=== PATIENT | male | born 1960 | race Caucasian/White ===

== ENCOUNTER 2018-09-05 10:26 | Emergency (ER) | payer OTHER ==
[~2018-09-05] VITALS: Ht 167.6 cm; Wt 90.7 kg
[~2018-09-05 10:26] MED LIST: PERCOCET 10-3251 TAB; PROTONIX20 MG; TRELSTAR
[2018-09-05] MEDS ORDERED: KETO10TA2 PO (14:36)
[2018-09-05] MEDS ORDERED: PYRIDIUM200 MG PO (14:36)
[2018-09-05] MEDS ORDERED: LEVAQUIN500 MG PO (14:36)
== END 2018-09-05 15:38 | disposition home or self-care (01) ==
LOC: ER 10:26
DX: N39.0 Urinary tract infection, site not specified (principal)

== ENCOUNTER 2018-10-02 20:37 | Emergency (ER) | payer OTHER ==
[~2018-10-02] VITALS: Ht 167.6 cm; Wt 79.8 kg
[~2018-10-02 20:37] MED LIST changes: +KETO10TA2 PO; +LEVAQUIN500 MG PO; +PYRIDIUM200 MG PO
[2018-10-03] MEDS ORDERED: ZOFRAN ODT4 MG PO (01:33)
[2018-10-03] MEDS ORDERED: LEVAQUIN750 MG PO (01:33)
[2018-10-03] MEDS ORDERED: PEPCID40 MG PO (01:33)
[2018-10-03] MEDS ORDERED: KETO10TA2 PO (01:50)
== END 2018-10-03 01:23 | disposition home or self-care (01) ==
LOC: ER 20:37
DX: K40.90 Unilateral inguinal hernia, without obstruction or gangrene, not specified as recurrent (principal); R10.84 Generalized abdominal pain; C79.82 Secondary malignant neoplasm of genital organs; N39.0 Urinary tract infection, site not specified
CPT/HCPCS: 74177; Q9965

== ENCOUNTER 2018-12-18 00:27 | Emergency (ER) | payer OTHER ==
[~2018-12-18] VITALS: Ht 167.6 cm; Wt 72.1 kg
[~2018-12-18 00:27] MED LIST changes: +LEVAQUIN750 MG PO; +PEPCID40 MG PO; +ZOFRAN ODT4 MG PO
[2018-12-18] MEDS ORDERED: ULTRACET PO (04:16)
== END 2018-12-18 05:08 | disposition home or self-care (01) ==
LOC: ER 00:27
DX: S52.571A Other intraarticular fracture of lower end of right radius, initial encounter for closed fracture (principal); S52.592A Other fractures of lower end of left radius, initial encounter for closed fracture; W01.198A Fall on same level from slipping, tripping and stumbling with subsequent striking against other object, initial encounter; Y93.89 Activity, other specified; Y92.018 Other place in single-family (private) house as the place of occurrence of the external cause; Y99.8 Other external cause status

== ENCOUNTER 2019-04-25 16:42 | Emergency (ER) | payer OTHER ==
[~2019-04-25] VITALS: Ht 167.6 cm; Wt 70.3 kg
[~2019-04-25 16:42] MED LIST changes: +ULTRACET PO
== END 2019-04-25 22:17 | disposition home or self-care (01) ==
LOC: ER 16:42 → CPU-OBS 16:44 → ER 22:17
DX: R07.89 Other chest pain (principal)
CPT/HCPCS: 93005; G0378; G0379

== ENCOUNTER 2019-06-19 08:59 | Outpatient (CLI) | payer OTHER | END 2019-06-19 09:11 | disposition home or self-care (01) | LOC: LAB 08:59 | DX: I10 Essential (primary) hypertension (principal); N39.0 Urinary tract infection, site not specified; N40.0 Benign prostatic hyperplasia without lower urinary tract symptoms ==

== ENCOUNTER 2019-08-03 13:07 | Outpatient (CLI) | payer OTHER | END 2019-08-03 13:18 | disposition home or self-care (01) | LOC: LAB 13:07 | DX: N39.0 Urinary tract infection, site not specified (principal) ==

== ENCOUNTER 2019-08-08 12:36 | Outpatient (CLI) | payer OTHER | END 2019-08-08 12:45 | disposition home or self-care (01) | LOC: LAB 12:36 | DX: C61 Malignant neoplasm of prostate (principal) ==

== ENCOUNTER 2020-02-25 16:44 | Emergency (ER) | payer OTHER ==
[~2020-02-25] VITALS: Ht 167.6 cm; Wt 59.0 kg
== END 2020-02-25 21:58 | disposition home or self-care (01) ==
LOC: ER 16:44
DX: R33.8 Other retention of urine (principal); D64.89 Other specified anemias; C61 Malignant neoplasm of prostate; Z19.1 Hormone sensitive malignancy status